=== PATIENT | female | born 2005 | race Caucasian/White ===

== ENCOUNTER 2024-11-06 20:11 | Emergency (ER) | payer MEDICAID, SELFPAY ==
--- NOTE | ~2024-11-06 | XR_ITS ---
CLINICAL HISTORY: cough, chest pain 2 view chest x-ray Comparison: None provided Findings: No consolidation or effusion. Heart size is normal. No acute fracture. IMPRESSION: 1. No acute findings. This document has been electronically signed by: Mirna Mendoza MD on 11/06/2024 21:43:22
--- NOTE | 2024-11-06 20:14 | ECG_ITS ---
Test Reason : cp Blood Pressure : */* mmHG Vent. Rate : 96 BPM Atrial Rate : 96 BPM P-R Int : 120 ms QRS Dur : 76 ms QT Int : 358 ms P-R-T Axes : 53 68 24 degrees QTcB Int : 452 ms Normal sinus rhythm with sinus arrhythmia Normal ECG No previous ECGs available Referred By: Song Vega Electronically Signed By: Juan Pablo Romero
[2024-11-06 20:22] VITALS: BP 143/87; PULSE 91; RESP 16; TEMP 36.7; O2SAT 99; BMI 24.3
--- NOTE | 2024-11-06 20:26 | ED.GENADULT ---
HPI - General Adult General Chief complaint: Upper Respiratory Symptoms Stated complaint: chest pain + feeling tight, headache/cough Time Seen by Provider: 11/06/24 21:07 History of Present Illness ED Provider: Terrance Harden MD HPI narrative: This is a pleasant healthy 19-year-old female on no medications or OCPs. 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 She reports about a week or 10 days of cough started with perhaps subjective low-grade fever but that resolved. No phlegm production or hemoptysis denies any pulmonary history no smoking drinking or toxic habits. She feels mildly fatigued she denies hemoptysis or history of DVT or PE. No abdominal pain vaginal bleeding. She does report some mild chest tightness she tells me this is only after repeated coughing she does not have any exertional dyspnea or chest pain Related Data Previous Rx's ?Medication ?Instructions ?Recorded albuterol sulfate 90 mcg/actuation 2 puff inhalation Q6H PRN 11/06/24 aerosol inhaler shortness of breath or wheezing #8.5 grams Allergies Allergy/AdvReac Type Severity Reaction Status Date / Time No Known Allergies Allergy Verified 11/06/24 20:27 [facility] Social History Social History Smoked in Last 30 Days: No Use of substances other than those prescribed or required for medical reasons: No Advance Directives: No Advance Directives Information Provided: No Physical Exam ED Exam Exam: EXAM: Gen: Alert, awake, well appearing, well hydrated. Does not appear ill or toxic or in any distress no labored breathing smiling, euvolemic and comfortable normal respiratory effort Head: Atraumatic Eyes: Anicteric, Normal conjunctiva. ENT: Moist mucosa, no pallor. ? Neck: Supple. Skin: ?No observable rash or bruising on exposed or examined skin Respiratory: Breathing comfortably, No distress.Clear to auscultation bilaterally, symmetric chest expansion, No wheeze, rales, ronchi. Cardiovascular: Regular rate and rhythm. No murmurs or rub. Well perfused periphery, warm extremities. No edema. ? Abdominal: No focal tenderness. Soft, no objective distension. No palpable masses or obvious organomegaly. ?No guarding, no rebound tenderness or other peritoneal findings. : No flank tenderness. Neuro: Alert. Gross movement of all extremities intact. ? Psych: Calm. Cooperative. MSK: No grossly visible deformity. Vital signs: See flowsheet Vital Signs: Vital Signs - 24 hr 11/06/24 20:22 11/06/24 21:07 11/06/24 21:30 Temperature 98.0 F 98.4 F Pulse Rate 91 89 Respiratory Rate 16 16 Blood Pressure 143/87 H 136/89 Pulse Oximetry 99 99 99 Oxygen Delivery Method Room Air Room Air Room Air BMI result Body Mass Index 24.3 Course Course Course Narrative: RME, this is a rapid medical exam performed by Jakob Vega please refer to primary provider for complete H&P- 19 year old female presents for evaluation of cough, chest pain, dizziness for a week. Plan for labs, ekg, chest x-ray, viral swabs Medical Decision Making Medical Decision Making MDM Narrative: Medical Decision Making: Healthy 19-year-old female with no toxic habits. No labored breathing no abnormal lung sounds or hypoxia. Vitals stable and reassuring. 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 Her chest x-ray does not show any infiltrate effusion pneumothorax or other acute findings. ECG is reassuring. No indication for lab work she declined this as well. She does not appear anemic. No clinical symptomatology or signs to suggest DVT I doubt PE. Possibly URI with lingering bronchospastic cough. I have offered her albuterol inhaler for symptomatic relief which she accepts. Gofr-fay-wuxnpxb cough medicine may help. Strict return precautions provided Preliminary Favored Differential Diagnosis: URI, viral syndrome, bronchitis, allergic cough, pneumonia unlikely given the exam, vitals, radiology studies among additional considered etiologies Testing Interpreted Independently: Sinus rhythm rate 96 QTC 452. No acute ischemic changes no RV strain Radiology or Lab testing Results Reviewed: No infiltrate Consults: Not Applicable Independent Historians/External Chart Reviews: Not Applicable Social Determinants of Health Impacting MDM/Planning: Not Applicable Discharge Plan Discharge Clinical Impression: Upper respiratory infection Patient Disposition: Home, Self-Care Instructions: Acute Bronchitis (ED) Additional Instructions: DISCHARGE DIAGNOSES: Cough. No signs of pneumonia or abnormalities on EKG or physical examination HISTORY OF PRESENTATION: ?Cough EMERGENCY DEPARTMENT COURSE,TESTS, TREATMENTS: While in the ED today you had an EKG and a chest x-ray that were reassuring. We have prescribed you medications see below DISCHARGE MEDICATIONS: ?Albuterol inhaler as needed. While at the pharmacy you can get ljan-vnv-iyaxoti Mucinex or other fwhb-dmx-hbtwsov cough medicines such as Robitussin FOLLOW-UP: ?Call your primary or general physician soon as possible to discuss your symptoms, your ED visit and to discuss follow up plans PCP follow up as needed INSTRUCTIONS ?& RETURN PRECAUTIONS: If any symptoms change first call your primary physician, if it is after-hours your primary doctors office should have a provider manager enterprise content management you can speak with. If the symptoms are severe or very concerning to you then call 911 or return to the ED. Return for shortness of breath rapid palpitations severe chest pain or return if fever, prolonged or coughing up blood Terrance Harden MD Emergency Physician [facility] Prescriptions: New albuterol sulfate 90 mcg/actuation HFA aerosol inhaler 2 puff inhalation Q6H PRN (Reason: shortness of breath or wheezing) Qty: 8.5 0RF Interventions: ED Discharge Assessment Last Done: 11/06/24 21:30 Discharge Date/Time: 11/06/24 21:30 Print Language: Citizen Of [place]
--- OUTSIDE RECORDS SUMMARY | 2024-11-06 20:46 | XMS_ITS | Clinical Summary ---
Author Organization [facility], [facility], and [facility] Address [address] [place] [address] Care Team Providers Care Pharmacist Intern Name Role Phone Unavailable Primary Care Provider Unavailabl e Allergies No known active allergies Medications No known medications Active Problems No known active problems Social History Tobacco Use Types Packs/Day Years Used Date Smoking Tobacco: Never Smokeless Tobacco: Never Alcohol Use Standard Drinks/Week Comments Not Currently 0 (1 standard drink = 0.6 oz pur e alcohol) Comments No Sex and Gender Information Value Date Recorded Sex Assigned at Female 06/18/2022 4:16 PM EST Legal Sex Female 4:16 PM EST Gender Identity Female 06/18/2022 4:16 PM EST Sexual Orientation Not on file Last Filed Vital Signs Vital Sign Reading Time Taken Comments Blood Pressure 121/86 02/11/2023 12:40 PM EDT Pulse 93 02/11/2023 12:40 PM EDT Temperature 36 C (96.8 F) 10/09/2022 4:10 PM EDT Respiratory Rate 19 10/09/2022 4:07 PM EDT Oxygen Saturation 99% 10/09/2022 4:07 PM EDT Inhaled Oxygen Concentration - - Weight 63 kg (139 lb) 02/11/2023 12:40 PM EDT Height 162.6 cm (5' 4 ) 02/11/2023 12:40 PM EDT Body Mass Index 23.86 02/11/2023 12:40 PM EDT Plan of Treatment Health Maintenance Due Date Last Done Comments Chlamydia/GC Screening (ANNUAL) 2014 HIV SCREENING 2017 IMM: HPV (1 - 3-dose series) 2019 IMM: Meningococcal B (1 of 2 - Standard) 2020 Hepatitis C screening 2022 COVID-19 Vaccine ( - 2023- season) 2023 IMM: Influenza (#1) 2024 IMM: DTap/ Tdap/ Td (7 - Td or Tdap) 09/30/2025 10/01/2015, 11/24/2010, 09/05/2005, Additional history exists IMM: RSV (1 - 1-dose 75+ series) 2079 Pneumococcal Vaccine: Pediatrics (0 to 5 Years) and At-Risk Patients (6 to 49 Years) Aged Out 03/05/2005, 2004, 2004, Additional history exists No longer eligible based on patient's age to complete this topic Insurance [facility]
--- NOTE | 2024-11-06 20:48 | MHC.EDTECH ---
pt refusing labs to be drawn, unsure if she wants all or any of the labs to drawn. Jakob SOLIS aware. patient returned back to waiting room
[2024-11-06 21:07] VITALS: O2SAT 99
[2024-11-06 21:30] VITALS: BP 136/89; PULSE 89; RESP 16; TEMP 36.9; O2SAT 99
== END 2024-11-06 21:30 | disposition home or self-care (01) ==
PROVIDERS: Emergency Provider Emergency Medicine
DX: J06.9 Acute upper respiratory infection, unspecified (principal); R07.89 Other chest pain; R51.9 Headache, unspecified; R05.9 Cough, unspecified; I49.8 Other specified cardiac arrhythmias
CPT/HCPCS: 71046; 93005; 99283; 99285

== ENCOUNTER → 2024-11-06 20:14 | Outpatient (BNV) | payer SELFPAY | PROVIDERS: Emergency Provider Emergency Medicine; Visit Provider Internal Medicine Cardiovascular Disease | DX: R07.9 Chest pain, unspecified (principal) | CPT/HCPCS: 93010 ==

== ENCOUNTER → 2024-11-06 20:26 | Outpatient (BNV) | payer SELFPAY | PROVIDERS: Emergency Provider Emergency Medicine; Visit Provider Nuclear Medicine | DX: R07.9 Chest pain, unspecified (principal) | CPT/HCPCS: 71046 ==